=== PATIENT | female | born 1945 | race Caucasian/White ===

== ENCOUNTER 2023-01-08 09:44 | Outpatient (RCR) | payer MEDICARE, BC, SELFPAY | END 2023-01-08 09:49 | disposition home or self-care (01) | LOC: ANHHIPT 09:44 | PROVIDERS: PCP Internal Medicine; Visit Provider Nurse Practitioner Family | DX: M54.50 Low back pain, unspecified (principal) | CPT/HCPCS: 99199 ==

== ENCOUNTER 2023-01-20 08:42 | Outpatient (CLI) | payer MEDICARE, BC, SELFPAY ==
--- NOTE | 2023-01-20 09:05 | ECHO_ITS ---
Patient Info Name: Yamileth Solo Age: 77 years : 1945 Gender: Female Ht: 60 in Wt: 126 lbs BSA: 1.57 m2 HR: 76 bpm BP: 132 / 78 mmHg Heart Rhythm: Sinus Rhythm Exam Date: 01/20/2023 9:19 AM Exam Location: [facility] Patient Status: Outpatient Admit Date: 01/20/2023 Staff Ordering Physician: Ayah Parkinson Solar Energy Sales Specialist: Miguel Clement RDCS, RT Attending Provider: Ayah Parkinson Referring Physician: Tesha FITZPATRICK; Exam Type: CA echo doppler color flow Study Info Indications R01.1 - Cardiac murmur, unspecified Complete two-dimensional, color flow and Doppler transthoracic echocardiogram is performed. Strain analysis performed. Summary 1. Complete two-dimensional, color flow and Doppler transthoracic echocardiogram is performed. 2. Left ventricular chamber dimension is normal. 3. Left ventricular systolic function is normal, estimated at 55-60%. 4. The left ventricular diastolic function is grade I diastolic dysfunction. 5. Right ventricular systolic function is normal. 6. There is mild mitral valve regurgitation. 7. There is mild tricuspid valve regurgitation. 8. There is trivial pericardial effusion. Left Ventricle Left ventricular chamber dimension is normal. Left ventricular systolic function is normal, estimated at 55-60%. There is no increased left ventricular wall thickness. The left ventricular diastolic function is grade I diastolic dysfunction. Global longitudinal strain is normal at -20 %. Right Ventricle Right ventricular chamber dimension is normal. Right ventricular systolic function is normal. Left Atria Left atrial chamber dimension is normal. Right Atria Right atrial chamber dimension is normal. Atrial Septum Intact interatrial septum visualized by color flow imaging. Aortic Valve The aortic valve is probable trileaflet. There is mild aortic valve sclerosis. There is no aortic valve stenosis. There is no aortic valve regurgitation. Pulmonic Valve The pulmonic valve is not well visualized. Mitral Valve The mitral valve has normal leaflets. There is no mitral valve stenosis. There is mild mitral valve regurgitation. Tricuspid Valve There is mild tricuspid valve regurgitation. Pericardium/Pleural The pericardium appears epicardial fat pad. There is trivial pericardial effusion. Inferior Vena Cava Normal inferior vena cava with >50% collapse upon inspiration consistent with normal right atrial pressure, 3 mmHg. Aorta The aortic root size at the sinus of Valsalva is normal. Left Ventricular Outflow Tract Name Value Normal LVOT 2D LVOT Diameter 1.9 cm LVOT Doppler LVOT Peak Gradient 5 mmHg LVOT Mean Gradient 2 mmHg LVOT VTI 24 cm LVOT VTI/AV VTI Ratio 0.8 LVOT Stroke Volume 64 ml LVOT CO 5.1 l/min LVOT CI 3.2 l/min/m2 Mitral Valve
== END 2023-01-20 08:43 | disposition home or self-care (01) ==
PROVIDERS: PCP Nurse Practitioner Family; Visit Provider Nurse Practitioner Family
DX: R01.1 Cardiac murmur, unspecified (principal); I08.1 Rheumatic disorders of both mitral and tricuspid valves
CPT/HCPCS: 93306

== ENCOUNTER 2023-01-22 10:32 | Outpatient (CLI) | payer MEDICARE, BC, SELFPAY ==
--- NOTE | ~2023-01-22 | MR_ITS ---
MRI of the lumbar spine Clinical History: Compression fracture Technique: Axial T2-weighted images, and sagittal T1-weighted, T2-weighted, and T2 fat-sat images wer e acquired. Findings: There is acute mild compression fracture of L4, mild loss of height and marrow edema. There is acute mild to moderate compression fracture of L2, with superior endplate loss of height and mild marrow edema. Chronic compression deformity of L3 present, without marrow edema. Chronic anterior we dging defect of T11, without marrow edema. No subluxation evident. At L1-L2, there is no disc bulge or herniation. There is minimal facet joint hypertrophy. No spinal c anal stenosis and probable minimal bilateral neural foraminal narrowing. At L2-L3, disc bulge and facet arthropathy result minimal central canal stenosis and probable left la teral recess stenosis. There is moderate to advanced right neural foraminal narrowing and moderate le ft neural foraminal narrowing. At L3-L4, there is disc bulge and facet arthropathy. No mary spinal canal stenosis. There is moderat e to severe left neural foraminal narrowing and mild right neural foraminal narrowing. At L4-L5, there is disc bulge and facet arthropathy. No mary spinal canal stenosis. There is severe left neural foraminal narrowing and mild right neural foraminal narrowing. At L5-S1, there is facet arthropathy without disc bulge or herniation. No spinal canal stenosis. Ther e is severe left neural foraminal narrowing. Right neural foramen preserved. Paravertebral soft tissues are unremarkable. Impression: Acute compression fractures of L2 and L4, as detailed above. Chronic compression fractures of T11 and L3. Moderate degenerative spondylitic change. There is multilevel neural foraminal narrowing, as detailed above. Reviewed, dictated and finalized at [facility]. Impression: Acute compression fractures of L2 and L4, as detailed above. Chronic compression fractures of T11 and L3. Moderate degenerative spondylitic change. There is multilevel neural foraminal narrowing, as detailed above.
== END 2023-01-22 10:33 | disposition home or self-care (01) ==
PROVIDERS: PCP Nurse Practitioner Family; Visit Provider Nurse Practitioner Family
DX: M47.896 Other spondylosis, lumbar region (principal); S32.020A Wedge compression fracture of second lumbar vertebra, initial encounter for closed fracture; S32.040A Wedge compression fracture of fourth lumbar vertebra, initial encounter for closed fracture; X58.XXXA Exposure to other specified factors, initial encounter
CPT/HCPCS: 72148

== ENCOUNTER 2023-02-24 08:42 | Outpatient (CLI) | payer MEDICARE, BC, SELFPAY ==
--- NOTE | ~2023-02-24 | DEXA_ITS ---
Bone Density Report Name: VERN CHAPPELL Age: 77 Sex: Female Ethnicity: White Date of : 1945 Indication: postmenopausal; screening for osteoporosis; height loss; prior fracture; asthma or emphysema; hysterectomy; Referring Provider: TRE MAHAN Study: Bone densitometry was performed. Exam Date: February 24, 2023 Accession number: [id number] Bone Density: Region BMD T-score Z-score Classification AP Spine(L1-L4) 0.822 -2.0 0.6 Osteopenia Femoral Neck (Left) 0.620 -2.1 0.2 Osteopenia Total Hip (Left) 0.677 -2.2 -0.2 Osteopenia Femoral Neck (Right) 0.589 -2.3 -0.1 Osteopenia Total Hip (Right) 0.678 -2.2 -0.2 Osteopenia Total Hip Mean 0.678 -2.2 -0.2 Osteopenia World Health Organization criteria for BMD impression classify patients as: Normal (T-score at or above -1.0), Osteopenia (T-score between -1.0 and -2.5), or Osteoporosis (T-score at or below -2.5). 10-year Fracture Risk: FRAX not reported because: Prior hip or vertebral fracture Clinical Information Provided by Patient: Have had a previous hip or vertebral fracture Has had a low trauma fracture Has the following medical conditions: Asthma or Emphysema, Hysterectomy Patient maximum height was 61.5 Menopause Age: 51 No regular weight bearing exercise Does not regularly consume dairy products Drinks caffeinated beverages Onset of menses at age 9 Number of children 3 Impression: The patient has low bone mass, based on the Right Femoral Neck T-score. The patient has risk factors, including: previous fracture. Discussion: INCREASED RISK OF FRACTURE DUE TO HISTORY OF FRACTURE. The patient's previous fracture puts the patient at high risk of a future fracture. In untreated patients, the risk of osteoporotic fracture increases approximately two-fold for each 1.0 SD decrease in T-score. Low bone density is not the only risk factor for fracture; also consider factors such as patient's age, frailty or poor health, risk of falling, risk of injury, previous osteoporotic fracture, family history of osteoporosis, cigarette smoking, low body weight, etc. Not everyone with a low trauma fracture has osteoporosis; osteomalacia and other metabolic bone disorders should also be considered. Patients who have osteoporosis should be evaluated for specific diseases and conditions (secondary causes) that may cause or contribute to bone loss and fracture risk. National Osteoporosis Foundation (NOF) recommends pharmacologic intervention for patients with a prior hip or vertebral fracture regardless of BMD T-score. The patient should follow a healthful lifestyle (good nutrition with adequate calcium and vitamin D, and appropriate weight-bearing exercise). Follow-Up: Consider a repeat BMD and Vertebral Fracture Assessment (VFA) exam in 2 years or sooner if medica
== END 2023-02-24 08:43 | disposition home or self-care (01) ==
LOC: ANHIMG 08:44
PROVIDERS: PCP Nurse Practitioner Family; Visit Provider Nurse Practitioner Family
DX: Z78.0 Asymptomatic menopausal state (principal); M85.89 Other specified disorders of bone density and structure, multiple sites
CPT/HCPCS: 77080

== ENCOUNTER 2023-04-29 12:54 | Outpatient (CLI) | payer MEDICARE, BC, SELFPAY ==
--- NOTE | ~2023-04-29 | MR_ITS ---
MRI of the thoracic spine Clinical History: Fracture Technique: Axial T2-weighted and gradient images, and sagittal T1-weighted, T2-weighted, and STIR arabella ges were acquired. Findings: There is an acute moderate compression fracture T7, with moderate (50%) loss of height and diffuse marrow edema with hypointense fracture line. No definite underlying pathologic lesion identif ied. There is chronic moderate compression deformity of T9, and chronic mild compression deformity of T11. No subluxation evident. Intervertebral discs are relatively well preserved throughout the thoracic spine. No spinal canal naun nosis, cord compression identified. No significant disc bulge or herniation identified. No epidural m ass or collection seen. Paravertebral soft tissues are unremarkable. Impression: Acute, moderate compression fracture of T7. No evidence for underlying pathologic lesion. Chronic compression fracture deformity of T9 and T11. Reviewed, dictated and finalized at [facility]. Impression: Acute, moderate compression fracture of T7. No evidence for underlying patholog ic lesion. Chronic compression fracture deformity of T9 and T11.
--- NOTE | ~2023-04-29 | MR_ITS ---
MRI of the lumbar spine Clinical History: Fracture Technique: Axial T2-weighted images, and sagittal T1-weighted, T2-weighted, and and T2 fat-sat images were acquired. COMPARISON: 01/22/2023 Findings: No acute fracture or subluxation seen. There are chronic compression deformities of L2, L3, L4. No marrow edema evident. No subluxation. At L1-L2, there is no significant disc bulge or herniation. There is mild facet arthropathy. There is moderate right neural foraminal narrowing. Left neural foramen preserved. At L2-L3, there is diffuse disc bulge and facet arthropathy, resulting in mild central canal stenosis . There is moderate bilateral neural foraminal narrowing. At L3-L4, there is disc bulge and advanced facet arthropathy. There is minimal central canal stenosis . There is moderate left neural foraminal narrowing and minimal right neural foraminal narrowing. At L4-L5, there is disc bulge and facet arthropathy. No central canal stenosis. There is moderate to advanced bilateral neural foraminal narrowing. At L5-S1, there is disc bulge with moderate facet arthropathy. No central canal stenosis. There is se silvestre left neural foraminal narrowing. Right neural foramen preserved. Paravertebral soft tissues are unremarkable. Impression: Chronic compression fractures of L2, L3, L4. Moderate degenerative spondylitic changes, as detailed above. Reviewed, dictated and finalized at [facility]. Impression: Chronic compression fractures of L2, L3, L4. Moderate degenerative spondylitic changes, as detailed above.
== END 2023-04-29 12:55 ==
LOC: GOSHIMG 12:56
PROVIDERS: PCP Nurse Practitioner Family; Visit Provider Pain Medicine Pain Medicine
DX: M80.88XA Other osteoporosis with current pathological fracture, vertebra(e), initial encounter for fracture (principal)
CPT/HCPCS: 72146; 72148

== ENCOUNTER → 2023-06-14 14:30 | Outpatient (CLI) | payer MEDICARE, BC, SELFPAY ==
--- NOTE | ~2023-06-14 | XR_ITS ---
EXAMINATION: XR thoracic spine 3V DATE: 06/14/2023 15:10 INDICATION: Thoracic back pain TECHNIQUE: AP, lateral and lateral swimmer's views of the thoracic spine were obtained. COMPARISON: 04/13/2023 FINDINGS: There has been interval vertebroplasty change of the previously described T7 compression fr acture. There are unchanged compression fractures of T9 and T11. No new fracture is identified. Bone alignment is normal. There is mild loss of intervertebral disc space height at multiple levels in the thoracic spine. Surgical clips in the right upper quadrant are likely from prior cholecystectomy. IMPRESSION: 1. Interval vertebroplasty change at T7. 2. Unchanged chronic compression fractures of T9 and T11. 3. Mild thoracic spondylosis. Reviewed, dictated and finalized at location A.
== END ==
PROVIDERS: PCP Nurse Practitioner Family; Visit Provider Nurse Practitioner Family
DX: M47.894 Other spondylosis, thoracic region (principal); S22.070D Wedge compression fracture of T9-T10 vertebra, subsequent encounter for fracture with routine healing; S22.080D Wedge compression fracture of T11-T12 vertebra, subsequent encounter for fracture with routine healing; X58.XXXD Exposure to other specified factors, subsequent encounter
CPT/HCPCS: 72072

== ENCOUNTER 2025-06-20 10:16 | Outpatient (CLI) | payer MEDICARE, BC, SELFPAY ==
--- OUTSIDE RECORDS SUMMARY | 2007-02-15 08:42 | XMS_ITS | Continuity of Care Document ---
Author Organization [facility] Address [address] [place] [address] utive [facility] [address] [place] [address] Phone Care Team Providers Care Charge Entry Clerk Name Role Phone Monika Collins Unavailable Unavailable Procedures Procedure Date Eye Exam & Treatment Refraction Advance Directives Directive Yes / No Effective Date File Name No Information Encounters Encounter Description Practice Location Reason(s) For Visit Diagnoses Date Provider Providers Copied on Encounter [facility], [address] [place] [address] [address], [place], [place], [id number], [place] tel:[phone] [facility] No Information 4-[address] Karina Frank. [address] , [address], [place], [address], [place]. tel:[phone] Family History Family Member Type Diagnosis Age At Onset No Information Payers Payer name Insurance type Covered libertarian ID Authoriza tion(s) BCBS MD Commercial BL [id number] Social History Type Description Quantity Date Captured Comments Sex Female Smoking Status No Information Chief Complaint And Reason For Visit No Information Reason For Referral Reason For Referral No Information History Of Present Illness Encounter Date Complaint History Of Prese nt Illness No Information Functional Status Date Functional Assessmen t No Information Instructions Date Instruction Additional Infor mation No Information Assessments Type Assessment Date No Information Patient Care Teams Name Effective Dates (start - stop) Status Members No Information
--- NOTE | ~2025-06-20 | DEXA_ITS ---
Bone Density Report Name: VERN CHAPPELL Age: 80 Sex: Female Ethnicity: White Date of : 1945 Indication: postmenopausal; screening for osteoporosis; height loss; prior fracture; asthma or emphysema; hysterectomy; Referring Provider: TRE MAHAN Study: Bone densitometry was performed. Exam Date: June 20, 2025 Accession number: [id number] Bone Density: Region BMD T-score Z-score Classification AP Spine(L1-L4) 0.898 -1.4 1.4 Osteopenia Femoral Neck (Left) 0.598 -2.3 0.1 Osteopenia Total Hip (Left) 0.734 -1.7 0.4 Osteopenia Femoral Neck (Right) 0.612 -2.1 0.2 Osteopenia Total Hip (Right) 0.742 -1.6 0.5 Osteopenia Total Hip Mean 0.738 -1.7 0.5 Osteopenia World Health Organization criteria for BMD impression classify patients as: Normal (T-score at or above -1.0), Osteopenia (T-score between -1.0 and -2.5), or Osteoporosis (T-score at or below -2.5). 10-year Fracture Risk: FRAX not reported because: Prior hip or vertebral fracture Clinical Information Provided by Patient: Have had a previous hip or vertebral fracture Has had a low trauma fracture Has the following medical conditions: Asthma or Emphysema, Hysterectomy Patient maximum height was 61.5 Menopause Age: 51 No regular weight bearing exercise Does not regularly consume dairy products Drinks caffeinated beverages Onset of menses at age 9 Number of children 3 Impression: The patient has low bone mass, based on the Left Femoral Neck T-score. The patient has risk factors, including: previous fracture. Discussion: INCREASED RISK OF FRACTURE DUE TO HISTORY OF FRACTURE. The patient's previous fracture puts the patient at high risk of a future fracture. In untreated patients, the risk of osteoporotic fracture increases approximately two-fold for each 1.0 SD decrease in T-score. Low bone density is not the only risk factor for fracture; also consider factors such as patient's age, frailty or poor health, risk of falling, risk of injury, previous osteoporotic fracture, family history of osteoporosis, cigarette smoking, low body weight, etc. Not everyone with a low trauma fracture has osteoporosis; osteomalacia and other metabolic bone disorders should also be considered. Patients who have osteoporosis should be evaluated for specific diseases and conditions (secondary causes) that may cause or contribute to bone loss and fracture risk. National Osteoporosis Foundation (NOF) recommends pharmacologic intervention for patients with a prior hip or vertebral fracture regardless of BMD T-score. The patient should follow a healthful lifestyle (good nutrition with adequate calcium and vitamin D, and appropriate weight-bearing exercise). Follow-Up: Consider a repeat BMD and Vertebral Fracture Assessment (VFA) exam in 2 years or sooner if medically necessary, to reassess this patient's status. Reported by: TYLOR on 06/28/2025 8:07:00 AM. Reviewed, dictated and finalized at location A.
--- OUTSIDE RECORDS SUMMARY | 2025-06-20 10:41 | XMS_ITS | Encounter Summary ---
Author Organization [facility] Address [address] [place] [address] Phone Care Team Providers Care Dry Box Tender Name Role Phone Qamar Ramirez MD Unavailable Ayah Parkinson APRN, LONG LINES OPERATOR Primary Care Provide r Reason for Visit * Reason Comments Medication Refill Encounter Details Date Type Department Care Team (Late st Contact Info) Description 12/30/2023 Refill [facility] - Pulmonology & Sleep Medicine [facility] [address] [place] [address] Qamar Ramirez MD [address] [place] [address] Medication Refill Social History Tobacco Use Types Packs/Day Years Used Date Smoking Tobacco: Former Smokeless Tobacco: Never Alcohol Use Standard Drinks/Week Comments No 0 (1 standard drink = 0.6 oz pur e alcohol) Sexually Active Control Partners Comments Not Currently Comments No Sex and Gender Information Value Date Recorded Sex Assigned at Not on file Legal Sex Female 2:13 PM CDT Gender Identity Not on file Sexual Orientation Not on file documented as of this encounter Miscellaneous Notes * Telephone Encounter - Elena Loyd RN - 12/30/2023 12:43 PM CST Medication failed the protocol, provider to review and approve the medication order if appropriate. Requested Prescriptions Pending Prescriptions Disp Refills roflumilast (DALIRESP) 500 MCG Tablet [Pharmacy Med Name: ROFLUMILAST TAB 500MCG] 90 Tablet 3 Sig: TAKE 1 TABLET DAILY Not Delegated - Off Protocol Failed - 12/30/2023 12:34 PM Failed - This refill cannot be delegated Passed - Visit with relevant provider in past 12 months or upcoming 90 days Recent Visits Date Type Provider Dept 04/08/23 Office Visit Qamar Raimrez MD [facility] Showing recent visits within past 365 days and meeting all other requirements Future Appointments No visits were found meeting these conditions. Showing future appointments within next 90 days and meeting all other requirements DRIVER HELPER documented in this encounter Plan of Treatment Upcoming Encounters Date Type Department Care Team (Late st Contact Info) Description 08/08/2025 9:15 AM CDT Office Visit [facility] - Endocrinology - [place] [address] [place] [phone] Qamar Ramirez MD [address] [place] [address] Yovanny Dow MD [address] [phone] 05/28/2026 11:45 AM CDT Office Visit [facility] - Pulmonology & Sleep Medicine [facility] [address] [place] [phone] Qamar Ramirez MD [address] [place] [phone] documented as of this encounter Visit Diagnoses Not on filedocumented in this encounter Care Teams Dry Box Tender Relationship Specialty Start Date End Date Ayah Parkinson, TRANSITION MANAGER, LONG LINES OPERATOR [address] [facility] [address] [place], [place] [id number] PCP - General Advanced Practice Nurse 01/11/23 Qamar Ramirez MD [address] [place] [address] Consulting Physician Pulmonary Disease 02/12/22 documented as of this encounter
--- OUTSIDE RECORDS SUMMARY | 2025-06-20 10:41 | XMS_ITS | Encounter Summary ---
Author Organization [facility] Address [address] [place] [address] Phone Care Team Providers Care Turkish Line Attendant Name Role Phone Qamar Ramirez MD Unavailable Qamar Ramirez MD Unavailable Ayah Parkinson APRN, LAND MANAGER Primary Care Provide r Reason for Visit * Reason Comments Medication Refill Encounter Details Date Type Department Care Team (Late Contact Info) Description 10/26/2023 Refill [facility] - [facility] [address] [place] [address] Qamar Ramirez MD [address] [place] [address] Medication Refill Social History Tobacco [...] on file documented as of this encounter Plan of Treatment Upcoming Encounters Date Type Department Care Team (Late Contact Info) Description 08/08/2025 9:15 AM CDT Office Visit [facility] - Endocrinology - [place] [address] [place] [address] Qamar Ramirez MD [address] [place] [address] Yovanny Dow MD [address] [address] 05/28/2026 11:45 AM CDT Office Visit [facility] - Pulmonology & Sleep Medicine - [place] [address] [place] [address] Qamar Ramirez MD [address] [place] [address] documented as of this encounter Visit Diagnoses Not on filedocumented in this encounter Care Teams Turkish Line Attendant Relationship Specialty Start Date End Date Ayah Parkinson APRN, LAND MANAGER [address] [facility] [facility] [address] [facility] [address] [place] [address] PCP - General Advanced Practice Nurse 01/11/23 Qamar Ramirez MD Consulting Physician Pulmonary Disease 07/03/16 4 Qamar Ramirez MD [address] [place] [address] Consulting Physician Pulmonary Disease 02/12/22 documented as of this encounter
--- OUTSIDE RECORDS SUMMARY | 2025-06-20 10:41 | XMS_ITS | Encounter Summary ---
Author Organization [facility] Address [address] [place] [address] Phone Care Team Providers Care Property Management Bookkeeper Name Role Phone Qamar Ramirez MD Unavailable Jarek Onofre MD Primary Care Provider Qamar Ramirez MD Unavailable Ayah Parkinson APRN, RN BIRTHING Primary Care Provide r Reason for Visit * Reason Comments Medication Refill Encounter Details Date Type Department Care Team (Late st Contact Info) Description 12/15/2020 Refill [facility] PULMONOLOGY [address] [place] [address] Qamar Ramirez MD [address] [place] [phone] Medication Refill Social History Tobacco Use Types [...] Description 08/08/2025 9:15 AM CDT Office Visit [facility] - Endocrinology - [place] [address] [place] [address] Qamar Ramirez MD [address] [place] [address] Yovanny Dow MD [address] [phone] 05/28/2026 11:45 AM CDT Office Visit [facility] - Pulmonology & Sleep Medicine [facility] [address] [place] [address] Qamar Ramirez MD [address] [place] [address] documented as of this encounter Visit Diagnoses Not on filedocumented in this encounter Care Teams Property Management Bookkeeper Relationship Specialty Start Date End Date Jarek Onofre MD PCP - General Internal Medicine 09/06/18 01/10/23 Ayah Parkinson, PRODUCE TEAM MEMBER, RN BIRTHING [address] [facility] [address] [place] [address] PCP - General Advanced Practice Nurse 01/11/23 Qamar Ramirez MD Consulting Physician Pulmonary Disease 07/03/1611/15/ 4 Qamar Ramirez MD [address] [place] [address] Consulting Physician Pulmonary Disease 02/12/22 documented as of this encounter
--- OUTSIDE RECORDS SUMMARY | 2025-06-20 10:41 | XMS_ITS | Clinical Summary ---
Author Organization [facility] Address [address] [facility], [place] [address] Phone Care Team Providers Care Structural Steel Detailer Name Role Phone Qamar Ramirez MD Unavailable Ayah Parkinson EXHIBIT SPECIALIST, SCRAP PREPARER Primary Care Provide r Allergies No known active allergies Medications ProAir RespiClick 108 (90 Base) MCG/ACT AEROSOL POWDER, BREATH ACTIVATED take 1 Puff by inhalation every 4 hours as needed for Wheezing. 3 Each 3 1 Active Anoro Ellipta 62.5-25 MCG/ACT AEROSOL POWDER, BREATH ACTIVATEDIndica tions:Centrilob ular emphysema (HCC) Use 1 inhalation orally daily 90 Each 3 4 Active albuterol 108 (90 Base) MCG/ACT Aerosol SolutionIndicat ions:Centrilobu lar emphysema (HCC) USE 2 INHALATIONS ORALLY EVERY 4 HOURS NEEDED FORWHEEZING OR COUGH 40.2 g 3 4 Active roflumilast (DALIRESP) 500 MCG Tablet TAKE 1 TABLET DAILY 90 Tablet 3 5 Active Active Problems Problem Noted Date Diagnosed Date Multiple pulmonary nodules 08/06/2016 Centrilobular emphysema 08/06/2016 SOB (shortness of breath) 08/06/2016 Encounters Date Type Department Care Team Description 06/13/2025 11:28 AM CDT - 06/13/2025 11:59 PM CDT [facility] [address] [facility] [place] [address] Qamar Ramirez MD Discharge Disposition: Discharged to home or Selfcare 06/11/2025 Travel 05/28/2025 11:30 AM CDT [facility] - [place] [address] [place] [address] Qamar Ramirez MD Multiple pulmonary nodules (Primary Dx); Centrilobular emphysema (HCC); SOB (shortness of breath); Age-related osteoporosis with current pathological fracture, initial encounter Discharge Disposition: Discharged to home or Selfcare 05/26/2025 Travel from Last 3 Months Immunizations Immunization Administration Dates Next Due Covid-19, Mrna, Lnp-s, PF, 1 00 mcg/0.5 mL Dose (Moderna) 01/03/2021,12/06/2020 Influenza, high-dose, trivalent, PF 08/16/2020,1 Family History Medical History Relation Name Comments Emphysema Father Heart Disease Father Congestive Heart Failure Mother Other-comment Sister SCLEREDEMA Relation Name Status Comments Father Mother Sister Social History Tobacco Use Types Packs/Day Years Used Date Smoking Tobacco: Former Smokeless Tobacco: Never Tobacco Cessation:Counseling Given: Not Answered Alcohol Use Standard Drinks/Week Comments No 0 (1 standard drink = 0.6 oz pur e alcohol) Sexually Active Control Partners Comments Not Currently Comments No Sex and Gender Information Value Date Recorded Sex Assigned at Not on file Legal Sex Female 2:13 PM CDT Gender Identity Not on file Sexual Orientation Not on file Last Filed Vital Signs Vital Sign Reading Time Taken Comments Blood Pressure 124/72 05/28/2025 11:48 AM CDT Pulse 69 05/28/2025 11:48 AM CDT Temperature 36.4 C (97.5 F) 05/28/2025 11:48 AM CDT Respiratory Rate 16 04/06/2024 10:07 AM CDT Oxygen Saturation 98% 05/28/2025 11:48 AM CDT Inhaled Oxygen Concentration - - Weight 58.7 kg (129 lb 8 oz) 05/28/2025 11:48 AM CDT Height 154.9 cm (5' 1) 05/28/2025 11:48 AM CDT Body Mass Index 24.47 05/28/2025 11:48 AM CDT Plan of Treatment Upcoming Encounters Date Type Department Care Team (Late st Contact Info) Description 08/08/2025 9:15 AM CDT [facility] - [place] [address] [place] [address] Qamar Ramirez MD [address] [place] [address] Yovanny Dow MD [address] [place] [address] 05/28/2026 11:45 AM CDT Office Visit [facility] - Pulmonology & Sleep Medicine [facility] [address] [place] [address] Qamar Ramirez MD [address] [facility] [address] Health Maintenance Due Date Last Done Comments DEXA Bone Density 1945 Hepatitis C Virus (HCV) Screening 1945 Zoster Immunization (1 of 2) 1994 Respiratory Syncytial Virus (RSV) Immunization (Adult) (1 - 1-dose 75+ series) 2019 SARS-COV-2 Immunization ( season) 2024 09/26/2021, 01/03/2021, 12/06/2020 Influenza Immunization (#1) 06/25/202512/2023, 08/23/2023, 08/07/2022, Additional history exists DTaP/Tdap/Td Immunization Discontinued 12/08/2013 TdaP Immunization Completed 12/08/2013 Pneumococcal Immunization (50+ years) Completed 07/27/2024, 08/03/2015, 06/28/2013 Pneumococcal Immunization Combined Discontinued 07/27/2024, 08/03/2015, 06/28/2013 Hepatitis B Immunization Aged Out No longer eligible based on patient's age to complete this topic Human Papillomavirus (HPV) Immunization Aged Out No longer eligible based on patient's age to complete this topic Meningococcal Immunization (ACWY) Aged Out No longer eligible based on patient's age to complete this topic Rotavirus Immunization Aged Out No lo nger eligible based on patient's age to complete this topic Procedures Procedure Name Priority Date/Time Associated Diagnosis Comments COMPLETE PFT W + W/O BRONCHODILATOR Routine 06/13/2025 Centrilobular emphysema (HCC) from Last 3 Months Insurance MEDICARE [facility] Care Teams Structural Steel Detailer Relationship Specialty Start Date End Date Ayah Parkinson, EXHIBIT SPECIALIST, SCRAP PREPARER [address] [facility] [address] [place] [address] PCP - General Advanced Practice Nurse 01/11/23 Qamar Ramirez MD [address] [place] [address] Consulting Physician Pulmonary Disease 02/12/22
== END 2025-06-20 10:17 | disposition home or self-care (01) ==
LOC: ANHFOHIMG 10:17
PROVIDERS: PCP Nurse Practitioner Family; Visit Provider Nurse Practitioner Family
DX: M81.0 Age-related osteoporosis without current pathological fracture (principal); M85.89 Other specified disorders of bone density and structure, multiple sites; Z13.820 Encounter for screening for osteoporosis
CPT/HCPCS: 77080